=== PATIENT | male | born 1975 | race Asian ===

== ENCOUNTER 2018-08-10 15:04 | Inpatient (IN) | payer OTHER ==
[~2018-08-10] VITALS: Ht 175.3 cm; Wt 89.9 kg
--- NOTE | 2018-08-10 15:35 | NUR ---
PT C/O DARK STOOLS AFTER USING MOTRIN WITH HX OF THE SAME WHEN USING MOTRIN. PT HAS HX OF ULCER AND HAS BEEN TAKING PRILOSEC. DR. BECERRA AT BEDSIDE.
--- NOTE | 2018-08-10 15:46 | NUR ---
PT TO RESTROOM FOR STOOL SPECIMEN.
[2018-08-10 16:07] LABS: MEAN CORPUSCULAR HEMOGLOBIN 21.4 pg (27.5-34.5); MEAN CORPUSCULAR HGB CONC 31.8 g/dL (33.2-36.2); MEAN CORPUSCULAR VOLUME 67.3 fL (81-97); MEAN PLATELET VOLUME 9.6 fL (7.4-10.4); PLATELET COUNT 360 x10^3/uL (130-400); RED BLOOD COUNT 6.08 x10^6/uL (4.38-5.82); RED CELL DISTRIBUTION WIDTH 15.1 % (9.4-14.8)
[2018-08-10 16:13] LABS: INTERNATIONAL NORMALIZED RATIO 1.03 (0.93-1.1); PROTHROMBIN TIME 10.9 Seconds (9.6-11.5)
[2018-08-10 16:16] LABS: ALBUMIN 3.9 g/dL (3.4-5.0); ANION GAP 9 mmol/L (5-15); CALCIUM 9.3 mg/dL (8.5-10.1); CHLORIDE 99 mmol/L (98-107)
[2018-08-10 16:21] LABS: ALANINE AMINOTRANSFERASE 88 U/L (12-78); ALKALINE PHOSPHATASE 90 U/L (45-117); BILIRUBIN,TOTAL 0.7 mg/dL (0.2-1.0); CREATININE 2.19 mg/dL (0.7-1.3); TOTAL PROTEIN 8.2 g/dL (6.4-8.2)
[2018-08-10] MEDS ORDERED: PANTOPRAZOLE 40 MG IV IVPush ONE (16:30)
[2018-08-10 16:33] LABS: MD YES
[2018-08-10 16:38] LABS: BAND#(MANUAL) 0.18 x10^3/uL; BANDS%(MANUAL) 1 % (0-7); BASOS#(MANUAL) 0.18 x10^3/uL (0-0.1); BASOS% (MANUAL) 1 % (0-1); EOS#(MANUAL) 0.36 x10^3/uL (0.0-0.4); EOS% (MANUAL) 2 % (1-7); LYMPH#(MANUAL) 3.46 x10^3/uL (1-3.4); LYMPHS% (MANUAL) 19 % (22-44); MONOS#(MANUAL) 1.82 x10^3/uL (0.3-2.7); MONOS% (MANUAL) 10 % (2-9); SEG#(MANUAL) 12.19 x10^3/uL (1.8-6.8); SEGS% (MANUAL) 67 % (42-75)
[2018-08-10 16:40] LABS: MICROCYTOSIS 2+
[2018-08-10 16:41] LABS: <PLATELET ESTIMATE> ADEQUATE; <PLT MORPHOLOGY> NORMAL PLT MORPH; HYPOCHROMIA 1+
[2018-08-10] MEDS ORDERED: PANTOPRAZOLE 40 MG IV ONE (17:01)
[2018-08-10] MEDS ORDERED: ONDANSETRON 2MG/ML, 2ML ONE (17:20)
[2018-08-10] MEDS ORDERED: MORPHINE SULFATE 4 MG/ML, 1ML ONE (17:21)
[2018-08-10] MEDS ORDERED: METRONIDAZOLE PMX 500MG/100ML 100 ML ONE (17:21)
[2018-08-10] MEDS ORDERED: PLEASE ENTER ALLERGIES MC SCH (17:30)
[2018-08-10] MEDS ORDERED: SODIUM CHLORIDE 0.9% 1,000ML IVBOLUS ONE (17:30)
[2018-08-10] MEDS ORDERED: ONDANSETRON 2MG/ML, 2ML IVPush ONE (17:30)
[2018-08-10] MEDS ORDERED: METRONIDAZOLE PMX 500MG/100ML 100 ML IV ONE (17:30)
[2018-08-10] MEDS ORDERED: MORPHINE SULFATE 4 MG/ML, 1ML IVPush PRN (17:30)
--- NOTE | 2018-08-10 18:00 | NUR ---
PAIN 2/10 AFTER MORPHINE AND TOLERABLE PER PT. PT TO BE ADMITTED. WAITING FOR ADMIT ORDERS.
--- NOTE | 2018-08-10 19:24 | NUR ---
HOSPITALIST AT BEDSIDE FOR ADMIT. VSS.
[2018-08-10] MEDS ORDERED: DAYQUIL PO (19:57)
[2018-08-10] MEDS ORDERED: OMEP20TA62 PO (19:57)
[2018-08-10] MEDS ORDERED: LACT1CAP35 PO (19:57)
[2018-08-10] MEDS ORDERED: LOSARTAN PO (19:57)
[2018-08-10] MEDS ORDERED: UNKN CHOLESTEROL MED PO (19:57)
[2018-08-10 20:18] VITALS: BP 137/82
[2018-08-10] MEDS: SODIUM CHLORIDE 0.9% 1,000 ML IV SCH (22:04)
[2018-08-10] MEDS: CLARITHROMYCIN 500 MG TABLET PO SCH (22:23)
[2018-08-10] MEDS: LIDODERM 5% PATCH TD PRN ×2 (22:41→22:47)
[2018-08-10] MEDS: METRONIDAZOLE PMX 500MG/100ML 100 ML IV SCH (23:53)
[2018-08-11 01:11] VITALS: BP 109/59
[2018-08-11 05:29] LABS: ANION GAP 7 mmol/L (5-15); CALCIUM 8.1 mg/dL (8.5-10.1); CHLORIDE 104 mmol/L (98-107)
[2018-08-11] MEDS: SODIUM CHLORIDE 0.9% 1,000 ML IV SCH ×3 (05:35→23:48)
[2018-08-11] MEDS: METRONIDAZOLE PMX 500MG/100ML 100 ML IV SCH ×4 (05:35→23:48)
[2018-08-11 05:36] LABS: MEAN CORPUSCULAR HEMOGLOBIN 21.3 pg (27.5-34.5); MEAN CORPUSCULAR HGB CONC 31.5 g/dL (33.2-36.2); MEAN CORPUSCULAR VOLUME 67.4 fL (81-97); MEAN PLATELET VOLUME 9.1 fL (7.4-10.4); PLATELET COUNT 276 x10^3/uL (130-400); RED BLOOD COUNT 4.74 x10^6/uL (4.38-5.82); RED CELL DISTRIBUTION WIDTH 14.9 % (9.4-14.8)
[2018-08-11 06:10] LABS: BASOPHILS # (AUTO) 0.05 x10^3/uL (0-0.1); BASOPHILS % (AUTO) 0 % (0-1); EOSINOPHILS # (AUTO) 0.13 x10^3/uL (0-0.4); EOSINOPHILS % (AUTO) 1 % (1-7); LYMPHOCYTES # (AUTO) 2.42 x10^3/uL (1-3.4); LYMPHOCYTES % (AUTO) 19 % (22-44); MD SCAN; MONOCYTES # (AUTO) 1.56 x10^3/uL (0.2-0.8); MONOCYTES % (AUTO) 12 % (2-9); NEUTROPHILS # (AUTO) 8.46 x10^3/uL (1.8-6.8); NEUTROPHILS % (AUTO) 67 % (42-75)
[2018-08-11 07:37] VITALS: BP 104/55
[2018-08-11] MEDS ORDERED: GADOBUTROL 10 MMOL/10 ML VIAL ONE (08:24)
[2018-08-11] MEDS ORDERED: FENTANYL PF 100 MCG/2ML ONE ×2 (08:40)
[2018-08-11] MEDS ORDERED: MIDAZOLAM 1 MG/ML, 5ML ONE (08:41)
[2018-08-11] MEDS: LACTOBACILLUS CHEW TABLET PO SCH (10:28)
[2018-08-11] MEDS: PANTOPRAZOLE 40 MG IV IVPush SCH ×2 (10:28→21:38)
[2018-08-11] MEDS: CLARITHROMYCIN 500 MG TABLET PO SCH ×2 (10:28→21:37)
[2018-08-11 13:00] VITALS: BP 131/77
[2018-08-11 19:13] VITALS: BP 140/81
[2018-08-11] MEDS: LIDODERM 5% PATCH TD PRN (21:48)
[2018-08-11] MEDS: ONDANSETRON 2MG/ML, 2ML IVPush PRN (22:48)
[2018-08-12] MEDS: TEMAZEPAM 15 MG CAPSULE PO PRN ×2 (00:12→22:29)
[2018-08-12 01:34] VITALS: BP 123/76
[2018-08-12 05:33] LABS: MEAN CORPUSCULAR HEMOGLOBIN 22.1 pg (27.5-34.5); MEAN CORPUSCULAR HGB CONC 32.1 g/dL (33.2-36.2); MEAN CORPUSCULAR VOLUME 68.8 fL (81-97); MEAN PLATELET VOLUME 8.9 fL (7.4-10.4); PLATELET COUNT 310 x10^3/uL (130-400); RED BLOOD COUNT 4.37 x10^6/uL (4.38-5.82); RED CELL DISTRIBUTION WIDTH 15.2 % (9.4-14.8)
[2018-08-12] MEDS: METRONIDAZOLE PMX 500MG/100ML 100 ML IV SCH ×4 (05:41→23:04)
[2018-08-12] MEDS: SODIUM CHLORIDE 0.9% 1,000 ML IV SCH ×3 (05:41→23:02)
[2018-08-12 05:45] LABS: CHLORIDE 107 mmol/L (98-107)
[2018-08-12 05:51] LABS: ALANINE AMINOTRANSFERASE 55 U/L (12-78); ALBUMIN 2.9 g/dL (3.4-5.0); ALKALINE PHOSPHATASE 64 U/L (45-117); ANION GAP 7 mmol/L (5-15); BILIRUBIN,TOTAL 0.4 mg/dL (0.2-1.0); CALCIUM 8.2 mg/dL (8.5-10.1); CREATININE 1.55 mg/dL (0.7-1.3)
[2018-08-12 06:35] LABS: MD YES
[2018-08-12 06:36] LABS: BAND#(MANUAL) 0.32 x10^3/uL; BANDS%(MANUAL) 3 % (0-7); BASOS#(MANUAL) 0.11 x10^3/uL (0-0.1); BASOS% (MANUAL) 1 % (0-1); LYMPH#(MANUAL) 2.81 x10^3/uL (1-3.4); LYMPHS% (MANUAL) 26 % (22-44); MONOS#(MANUAL) 0.97 x10^3/uL (0.3-2.7); MONOS% (MANUAL) 9 % (2-9); SEG#(MANUAL) 6.59 x10^3/uL (1.8-6.8); SEGS% (MANUAL) 61 % (42-75)
[2018-08-12 06:37] VITALS: BP 135/78
[2018-08-12 06:37] LABS: <PLATELET ESTIMATE> ADEQUATE; <PLT MORPHOLOGY> NORMAL PLT MORPH
[2018-08-12 06:38] LABS: HYPOCHROMIA 1+; MICROCYTOSIS 2+
[2018-08-12] MEDS ORDERED: LIDOCAINE-MPF 1%, 5ML ONE ×2 (09:41→10:30)
[2018-08-12] MEDS ORDERED: MIDAZOLAM 1 MG/ML, 5ML ONE (09:53)
[2018-08-12] MEDS ORDERED: FENTANYL PF 100 MCG/2ML ONE (09:53)
[2018-08-12] MEDS ORDERED: FLUMAZENIL 0.1 MG/1 ML, 5ML ONE (09:53)
[2018-08-12] MEDS ORDERED: NALOXONE 1 MG/ML, 2ML ONE (09:54)
[2018-08-12] MEDS: CLARITHROMYCIN 500 MG TABLET PO SCH ×2 (11:36→20:50)
[2018-08-12] MEDS: PANTOPRAZOLE 40 MG IV IVPush SCH ×2 (11:36→20:50)
[2018-08-12] MEDS: LACTOBACILLUS CHEW TABLET PO SCH (11:36)
[2018-08-12 12:29] VITALS: BP 154/96
[2018-08-12] MEDS: PIPERACILLIN/TAZO/PMX 3.375GM 50 ML IV SCH ×2 (15:21→20:50)
[2018-08-12] MEDS: ONDANSETRON 2MG/ML, 2ML IVPush PRN ×2 (15:24→23:08)
[2018-08-12] MEDS: morphine SULFATE 10 MG/ML, 1ML IVPush PRN ×4 (18:25→23:02)
[2018-08-12 19:22] VITALS: BP 151/91
[2018-08-12] MEDS: LIDODERM 5% PATCH TD PRN (20:51)
[2018-08-13] MEDS: morphine SULFATE 10 MG/ML, 1ML IVPush PRN ×3 (02:23→08:32)
[2018-08-13] MEDS: PIPERACILLIN/TAZO/PMX 3.375GM 50 ML IV SCH ×4 (02:23→20:29)
[2018-08-13 02:26] VITALS: BP 138/85
[2018-08-13] MEDS: METRONIDAZOLE PMX 500MG/100ML 100 ML IV SCH ×4 (05:23→23:16)
[2018-08-13] MEDS: SODIUM CHLORIDE 0.9% 1,000 ML IV SCH ×3 (05:24→22:20)
[2018-08-13 06:04] LABS: CHLORIDE 105 mmol/L (98-107)
[2018-08-13 06:18] LABS: ALANINE AMINOTRANSFERASE 53 U/L (12-78); ALBUMIN 2.7 g/dL (3.4-5.0); ALKALINE PHOSPHATASE 69 U/L (45-117); ANION GAP 7 mmol/L (5-15); BILIRUBIN,TOTAL 0.6 mg/dL (0.2-1.0); CALCIUM 8.4 mg/dL (8.5-10.1); CREATININE 1.61 mg/dL (0.7-1.3); TOTAL PROTEIN 5.9 g/dL (6.4-8.2)
[2018-08-13 06:40] LABS: HCT (SEDRATE) 29.2 % (39.2-51.8); MEAN CORPUSCULAR HEMOGLOBIN 21.8 pg (27.5-34.5); MEAN CORPUSCULAR HGB CONC 31.9 g/dL (33.2-36.2); MEAN CORPUSCULAR VOLUME 68.4 fL (81-97); MEAN PLATELET VOLUME 8.9 fL (7.4-10.4); PLATELET COUNT 316 x10^3/uL (130-400); RED BLOOD COUNT 4.27 x10^6/uL (4.38-5.82); RED CELL DISTRIBUTION WIDTH 14.9 % (9.4-14.8)
[2018-08-13 07:01] VITALS: BP 160/91
[2018-08-13 07:02] LABS: MD YES
[2018-08-13 07:03] LABS: ANISOCYTOSIS 2+; BAND#(MANUAL) 0.54 x10^3/uL; BANDS%(MANUAL) 4 % (0-7); BASOS#(MANUAL) 0.14 x10^3/uL (0-0.1); BASOS% (MANUAL) 1 % (0-1); LYMPH#(MANUAL) 2.72 x10^3/uL (1-3.4); LYMPHS% (MANUAL) 20 % (22-44); MONOS#(MANUAL) 0.95 x10^3/uL (0.3-2.7); MONOS% (MANUAL) 7 % (2-9); SEG#(MANUAL) 9.25 x10^3/uL (1.8-6.8); SEGS% (MANUAL) 68 % (42-75)
[2018-08-13 07:04] LABS: <PLATELET ESTIMATE> ADEQUATE; <PLT MORPHOLOGY> NORMAL PLT MORPH; HYPOCHROMIA 1+; OVALOCYTES 1+
[2018-08-13] MEDS: PANTOPRAZOLE 40 MG IV IVPush SCH ×2 (08:32→20:31)
[2018-08-13] MEDS: CLARITHROMYCIN 500 MG TABLET PO SCH ×2 (08:32→20:30)
[2018-08-13] MEDS: LACTOBACILLUS CHEW TABLET PO SCH (08:33)
[2018-08-13] MEDS: ONDANSETRON 2MG/ML, 2ML IVPush PRN ×3 (09:05→23:19)
[2018-08-13] MEDS ORDERED: LIDOCAINE-MPF 1%, 5ML ONE (11:02)
[2018-08-13 12:40] VITALS: BP 166/98
[2018-08-13 15:32] VITALS: BP 151/86
[2018-08-13 19:58] VITALS: BP 152/81
[2018-08-13] MEDS: TEMAZEPAM 15 MG CAPSULE PO PRN (22:43)
[2018-08-14 02:04] VITALS: BP 138/85
[2018-08-14] MEDS: PIPERACILLIN/TAZO/PMX 3.375GM 50 ML IV SCH ×4 (02:24→21:14)
[2018-08-14] MEDS: SODIUM CHLORIDE 0.9% 1,000 ML IV SCH ×4 (05:00→23:00)
[2018-08-14] MEDS: METRONIDAZOLE PMX 500MG/100ML 100 ML IV SCH ×4 (05:50→23:19)
[2018-08-14 06:16] LABS: BASOPHILS # (AUTO) 0.05 x10^3/uL (0-0.1); BASOPHILS % (AUTO) 0 % (0-1); EOSINOPHILS # (AUTO) 0.11 x10^3/uL (0-0.4); EOSINOPHILS % (AUTO) 1 % (1-7); LYMPHOCYTES % (AUTO) 18 % (22-44); MD NO; MEAN CORPUSCULAR HEMOGLOBIN 22.4 pg (27.5-34.5); MEAN CORPUSCULAR HGB CONC 32.9 g/dL (33.2-36.2); MEAN PLATELET VOLUME 8.6 fL (7.4-10.4); MONOCYTES # (AUTO) 1.36 x10^3/uL (0.2-0.8); MONOCYTES % (AUTO) 11 % (2-9); NEUTROPHILS # (AUTO) 8.64 x10^3/uL (1.8-6.8); NEUTROPHILS % (AUTO) 70 % (42-75); PLATELET COUNT 333 x10^3/uL (130-400); RED BLOOD COUNT 4.04 x10^6/uL (4.38-5.82); RED CELL DISTRIBUTION WIDTH 14.9 % (9.4-14.8)
[2018-08-14 06:30] LABS: ANION GAP 4 mmol/L (5-15); CALCIUM 7.9 mg/dL (8.5-10.1); CHLORIDE 108 mmol/L (98-107)
[2018-08-14 06:31] LABS: CREATININE 1.37 mg/dL (0.7-1.3)
[2018-08-14 06:51] VITALS: BP 137/74
[2018-08-14] MEDS: PANTOPRAZOLE 40 MG IV IVPush SCH ×2 (08:04→21:14)
[2018-08-14] MEDS: LACTOBACILLUS CHEW TABLET PO SCH (09:24)
[2018-08-14] MEDS: CLARITHROMYCIN 500 MG TABLET PO SCH ×2 (09:24→21:14)
[2018-08-14 13:34] VITALS: BP 148/88
[2018-08-14 20:06] VITALS: BP 136/94
[2018-08-14] MEDS: TEMAZEPAM 15 MG CAPSULE PO PRN (21:14)
[2018-08-15 02:00] VITALS: BP 150/92
[2018-08-15] MEDS: PIPERACILLIN/TAZO/PMX 3.375GM 50 ML IV SCH ×2 (02:10→08:21)
[2018-08-15] MEDS: SODIUM CHLORIDE 0.9% 1,000 ML IV SCH ×2 (02:15→11:43)
[2018-08-15 05:21] LABS: BASOPHILS # (AUTO) 0.02 x10^3/uL (0-0.1); BASOPHILS % (AUTO) 0 % (0-1); EOSINOPHILS % (AUTO) 2 % (1-7); LYMPHOCYTES % (AUTO) 19 % (22-44); MD NO; MEAN CORPUSCULAR HEMOGLOBIN 21.6 pg (27.5-34.5); MEAN CORPUSCULAR HGB CONC 31.2 g/dL (33.2-36.2); MEAN CORPUSCULAR VOLUME 69.2 fL (81-97); MEAN PLATELET VOLUME 8.4 fL (7.4-10.4); MONOCYTES # (AUTO) 1.16 x10^3/uL (0.2-0.8); MONOCYTES % (AUTO) 10 % (2-9); NEUTROPHILS # (AUTO) 8.43 x10^3/uL (1.8-6.8); NEUTROPHILS % (AUTO) 69 % (42-75); PLATELET COUNT 389 x10^3/uL (130-400); RED BLOOD COUNT 4.21 x10^6/uL (4.38-5.82); RED CELL DISTRIBUTION WIDTH 14.9 % (9.4-14.8)
[2018-08-15 05:22] LABS: ANION GAP 6 mmol/L (5-15); CALCIUM 8.2 mg/dL (8.5-10.1); CHLORIDE 106 mmol/L (98-107); CREATININE 1.42 mg/dL (0.7-1.3)
[2018-08-15] MEDS: METRONIDAZOLE PMX 500MG/100ML 100 ML IV SCH (05:35)
[2018-08-15 07:21] VITALS: BP 149/93
[2018-08-15] MEDS: LACTOBACILLUS CHEW TABLET PO SCH (08:21)
[2018-08-15] MEDS: CLARITHROMYCIN 500 MG TABLET PO SCH ×2 (08:21→20:24)
[2018-08-15] MEDS: PANTOPRAZOLE 40 MG IV IVPush SCH ×2 (08:21→20:24)
[2018-08-15] MEDS: CEFTRIAXONE PMX 2GM/50ML 50 ML IV SCH (14:05)
[2018-08-15] MEDS: metroNIDAZOLE 500 MG TABLET PO SCH ×2 (14:09→20:24)
[2018-08-15 14:51] VITALS: BP 174/91
[2018-08-15] MEDS ORDERED: hydrALAzine 20 MG/ML, 1ML IV PRN (17:30)
[2018-08-15 19:12] VITALS: BP 162/95
[2018-08-15] MEDS: LIDODERM 5% PATCH TD PRN (20:25)
[2018-08-15] MEDS: TEMAZEPAM 15 MG CAPSULE PO PRN (20:29)
[2018-08-15] MEDS: ONDANSETRON 2MG/ML, 2ML IVPush PRN (20:29)
[2018-08-16 01:10] VITALS: BP 132/76
[2018-08-16] MEDS: metroNIDAZOLE 500 MG TABLET PO SCH ×3 (05:14→20:38)
[2018-08-16 05:46] LABS: BASOPHILS # (AUTO) 0.08 x10^3/uL (0-0.1); BASOPHILS % (AUTO) 1 % (0-1); EOSINOPHILS # (AUTO) 0.19 x10^3/uL (0-0.4); EOSINOPHILS % (AUTO) 2 % (1-7); LYMPHOCYTES # (AUTO) 2.08 x10^3/uL (1-3.4); LYMPHOCYTES % (AUTO) 18 % (22-44); MD NO; MEAN CORPUSCULAR HEMOGLOBIN 22.2 pg (27.5-34.5); MEAN CORPUSCULAR HGB CONC 32.5 g/dL (33.2-36.2); MEAN CORPUSCULAR VOLUME 68.2 fL (81-97); MEAN PLATELET VOLUME 8.5 fL (7.4-10.4); MONOCYTES # (AUTO) 1.19 x10^3/uL (0.2-0.8); MONOCYTES % (AUTO) 10 % (2-9); NEUTROPHILS # (AUTO) 7.98 x10^3/uL (1.8-6.8); NEUTROPHILS % (AUTO) 69 % (42-75); PLATELET COUNT 451 x10^3/uL (130-400); RED BLOOD COUNT 4.48 x10^6/uL (4.38-5.82)
[2018-08-16 05:54] LABS: ALANINE AMINOTRANSFERASE 56 U/L (12-78); ALBUMIN 2.6 g/dL (3.4-5.0); ANION GAP 6 mmol/L (5-15); CALCIUM 8.5 mg/dL (8.5-10.1); CHLORIDE 104 mmol/L (98-107); CREATININE 1.21 mg/dL (0.7-1.3)
[2018-08-16 05:55] LABS: ALKALINE PHOSPHATASE 89 U/L (45-117); BILIRUBIN,TOTAL 0.5 mg/dL (0.2-1.0); TOTAL PROTEIN 6.7 g/dL (6.4-8.2)
[2018-08-16 07:38] VITALS: BP 157/88
[2018-08-16] MEDS: CLARITHROMYCIN 500 MG TABLET PO SCH ×2 (09:07→20:38)
[2018-08-16] MEDS: PANTOPRAZOLE 40 MG IV IVPush SCH ×2 (09:07→20:38)
[2018-08-16] MEDS: LACTOBACILLUS CHEW TABLET PO SCH (09:07)
[2018-08-16] MEDS: CEFTRIAXONE PMX 2GM/50ML 50 ML IV SCH (14:15)
[2018-08-16 16:58] VITALS: BP 152/89
[2018-08-16 18:59] VITALS: BP 151/99
[2018-08-16] MEDS: LIDODERM 5% PATCH TD PRN (20:39)
[2018-08-16] MEDS: TEMAZEPAM 15 MG CAPSULE PO PRN (22:10)
[2018-08-17] MEDS: metroNIDAZOLE 500 MG TABLET PO SCH ×2 (05:22→13:48)
[2018-08-17 09:25] VITALS: BP 167/105
[2018-08-17] MEDS: LACTOBACILLUS CHEW TABLET PO SCH (09:36)
[2018-08-17] MEDS: PANTOPRAZOLE 40 MG IV IVPush SCH (09:37)
[2018-08-17] MEDS: CLARITHROMYCIN 500 MG TABLET PO SCH (09:37)
[2018-08-17] MEDS ORDERED: CLAR500T PO (13:15)
[2018-08-17] MEDS ORDERED: METR500T PO (13:15)
[2018-08-17] MEDS ORDERED: PANT40TA3 PO (13:15)
[2018-08-17] MEDS ORDERED: TRAM50TA2 PO (13:15)
[2018-08-17] MEDS ORDERED: HYDR-3343 PO (13:15)
[2018-08-17] MEDS: CEFTRIAXONE PMX 2GM/50ML 50 ML IV SCH (13:48)
== END 2018-08-17 16:38 | disposition home or self-care (01) | DRG 871 ==
LOC: ED 17:53 → EDIP 19:07 → 4NOR 20:10 → DCLOUNGE 08-17 16:25
PROVIDERS: ADMIT Hospitalist; ATTEND Internal Medicine
PROC: 0DB68ZX Excision of Stomach, Via Natural or Artificial Opening Endoscopic, Diagnostic (ICD-10-PCS; 2018-08-11)
PROC: 0F913ZZ Drainage of Right Lobe Liver, Percutaneous Approach (ICD-10-PCS; 2018-08-12)
PROC: 02HV33Z Insertion of Infusion Device into Superior Vena Cava, Percutaneous Approach (ICD-10-PCS; principal; 2018-08-13)
PROC: B5181ZA Fluoroscopy of Superior Vena Cava using Low Osmolar Contrast, Guidance (ICD-10-PCS; 2018-08-13)
PROC: B548ZZA Ultrasonography of Superior Vena Cava, Guidance (ICD-10-PCS; 2018-08-13)
DX: A41.59 Other Gram-negative sepsis (principal); N17.0 Acute kidney failure with tubular necrosis; K75.0 Abscess of liver; K25.4 Chronic or unspecified gastric ulcer with hemorrhage; K26.4 Chronic or unspecified duodenal ulcer with hemorrhage; K29.71 Gastritis, unspecified, with bleeding; Z82.49 Family history of ischemic heart disease and other diseases of the circulatory system; E78.5 Hyperlipidemia, unspecified; D64.9 Anemia, unspecified; I11.9 Hypertensive heart disease without heart failure; B96.81 Helicobacter pylori [H. pylori] as the cause of diseases classified elsewhere; Z79.899 Other long term (current) drug therapy; Z79.1 Long term (current) use of non-steroidal anti-inflammatories (NSAID); Z79.2 Long term (current) use of antibiotics
CPT/HCPCS: 36415; 36569; 36573; 49405; 71045; 74176; 74181; 74183; 75989; 76937; 77001; 80048; 80053; 82105; 83605; 83735; 84100; 84145; 85025; 85610; 85651; 85730; 86140; 86677; 87040; 87070; 87075; 87077; 87102; 87186; 87205; 88305; 96361; 96365; 96375; 99156; 99157; A9585; G0378; J0696; J2250; J2405; J2543; J3010; C1729; C1751; C1769; C9113; J2270; J2310; J7030

== ENCOUNTER → 2018-09-27 | Outpatient (CLI) | payer OTHER ==
[~2018-09-27] MED LIST: CLAR500T PO; DAYQUIL PO; HYDR-3343 PO; LACT1CAP35 PO; LOSARTAN PO; METR500T PO; OMEP20TA62 PO; OMNIPAQUE 350 MG/ML, 100ML BOTTLE ONE; PANT40TA3 PO; TRAM50TA2 PO; UNKN CHOLESTEROL MED PO
== END | disposition home or self-care (01) ==
LOC: CFH 10:06
PROVIDERS: ATTEND Internal Medicine Infectious Disease
DX: K76.0 Fatty (change of) liver, not elsewhere classified (principal); K75.0 Abscess of liver
CPT/HCPCS: 74160; Q9967

== ENCOUNTER → 2019-01-29 | Outpatient (CLI) | payer OTHER ==
[~2019-01-29] MED LIST changes: +CLAR-36 PO; -CLAR500T PO; -OMNIPAQUE 350 MG/ML, 100ML BOTTLE ONE
[2019-01-29 11:35] LABS: ALANINE AMINOTRANSFERASE 40 U/L (12-78); ALBUMIN 4.1 g/dL (3.4-5.0); ANION GAP 7 mmol/L (5-15); CALCIUM 9.2 mg/dL (8.5-10.1); CHLORIDE 108 mmol/L (98-107); CREATININE 1.39 mg/dL (0.7-1.3)
[2019-01-29 11:45] LABS: ALKALINE PHOSPHATASE 65 U/L (45-117); BILIRUBIN,TOTAL 0.5 mg/dL (0.2-1.0); CHOL/HDL RATIO 4.8; CHOLESTEROL, TOTAL 218 mg/dL (140-239); HDL CHOL % 21 % (26-37); HDL CHOLESTEROL (DIRECT) 45 mg/dL (40-60); LDL CHOLESTEROL,CALCULATED 147 mg/dL (54-169); LDL/HDL RATIO 3.3 (0.5-3.0); THYROID STIMULATING HORMONE 0.713 mIU/L (0.358-3.740); TOTAL PROTEIN 7.8 g/dL (6.4-8.2); TRIGLYCERIDES 132 mg/dL (50-200); VLDL CHOLESTEROL 26 mg/dL (0-25)
[2019-01-29 11:49] LABS: BASOPHILS # (AUTO) 0.05 x10^3/uL (0-0.1); BASOPHILS % (AUTO) 1 % (0-1); EOSINOPHILS # (AUTO) 0.14 x10^3/uL (0-0.4); EOSINOPHILS % (AUTO) 2 % (1-7); LYMPHOCYTES # (AUTO) 1.96 x10^3/uL (1-3.4); LYMPHOCYTES % (AUTO) 30 % (22-44); MD NO; MEAN CORPUSCULAR HEMOGLOBIN 21.2 pg (27.5-34.5); MEAN CORPUSCULAR HGB CONC 31.5 g/dL (33.2-36.2); MEAN CORPUSCULAR VOLUME 67.4 fL (81-97); MEAN PLATELET VOLUME 9.1 fL (7.4-10.4); MONOCYTES % (AUTO) 8 % (2-9); NEUTROPHILS # (AUTO) 3.81 x10^3/uL (1.8-6.8); NEUTROPHILS % (AUTO) 59 % (42-75); PLATELET COUNT 176 x10^3/uL (130-400); RED BLOOD COUNT 6.46 x10^6/uL (4.38-5.82); RED CELL DISTRIBUTION WIDTH 15.7 % (9.4-14.8)
== END | disposition home or self-care (01) ==
LOC: LAB 11:14
PROVIDERS: ATTEND Family Medicine
DX: I10 Essential (primary) hypertension (principal); E78.2 Mixed hyperlipidemia; N17.0 Acute kidney failure with tubular necrosis
CPT/HCPCS: 36415; 80053; 80061; 84443; 85025

== ENCOUNTER → 2019-08-23 | Outpatient (CLI) | payer OTHER ==
[2019-08-23 07:48] LABS: BASOPHILS # (AUTO) 0.03 x10^3/uL (0-0.1); BASOPHILS % (AUTO) 1 % (0-1); EOSINOPHILS # (AUTO) 0.17 x10^3/uL (0-0.4); EOSINOPHILS % (AUTO) 3 % (1-7); LYMPHOCYTES # (AUTO) 2.39 x10^3/uL (1-3.4); LYMPHOCYTES % (AUTO) 35 % (22-44); MD NO; MEAN CORPUSCULAR HEMOGLOBIN 21.8 pg (27.5-34.5); MEAN CORPUSCULAR HGB CONC 31.2 g/dL (33.2-36.2); MEAN CORPUSCULAR VOLUME 69.7 fL (81-97); MEAN PLATELET VOLUME 9.6 fL (7.4-10.4); MONOCYTES # (AUTO) 0.63 x10^3/uL (0.2-0.8); MONOCYTES % (AUTO) 9 % (2-9); NEUTROPHILS # (AUTO) 3.71 x10^3/uL (1.8-6.8); NEUTROPHILS % (AUTO) 54 % (42-75); PLATELET COUNT 222 x10^3/uL (130-400); RED BLOOD COUNT 6.76 x10^6/uL (4.38-5.82); RED CELL DISTRIBUTION WIDTH 15.2 % (9.4-14.8)
[2019-08-23 07:50] LABS: ALBUMIN 4.1 g/dL (3.4-5.0); ANION GAP 5 mmol/L (5-15); CALCIUM 9.6 mg/dL (8.5-10.1); CHLORIDE 106 mmol/L (98-107); CHOLESTEROL, TOTAL 255 mg/dL (140-239)
[2019-08-23 08:16] LABS: % IRON SATURATION 34 % (20-55); ALANINE AMINOTRANSFERASE 42 U/L (12-78); ALKALINE PHOSPHATASE 53 U/L (45-117); BILIRUBIN,TOTAL 0.7 mg/dL (0.2-1.0); CHOL/HDL RATIO 5.9; CREATININE 1.46 mg/dL (0.7-1.3); FOLATE LEVEL 19.5 ng/mL (3.1-17.5); FREE T4 (FREE THYROXINE) 1.44 ng/dL (0.76-1.46); HDL CHOL % 17 % (26-37); HDL CHOLESTEROL (DIRECT) 43 mg/dL (40-60); IRON LEVEL 107 mcg/dL (65-175); LDL CHOLESTEROL,CALCULATED 188 mg/dL (54-169); LDL/HDL RATIO 4.4 (0.5-3.0); TOTAL IRON BINDING CAPACITY 316 mcg/dL (250-450); TOTAL PROTEIN 7.7 g/dL (6.4-8.2); TRIGLYCERIDES 120 mg/dL (50-200); VLDL CHOLESTEROL 24 mg/dL (0-25)
== END | disposition home or self-care (01) ==
LOC: LAB 07:19
PROVIDERS: ATTEND Nurse Practitioner Family
DX: E78.2 Mixed hyperlipidemia (principal); I10 Essential (primary) hypertension; R53.82 Chronic fatigue, unspecified; R79.9 Abnormal finding of blood chemistry, unspecified
CPT/HCPCS: 36415; 80053; 80061; 82306; 82607; 82746; 83540; 83550; 84439; 84443; 85025

== ENCOUNTER 2019-09-25 15:45 | Outpatient (CLI) | payer OTHER ==
[~2019-09-25 15:45] MED LIST changes: +CLAR-14 PO; -CLAR-36 PO
== END 2019-09-25 23:59 | disposition home or self-care (01) ==
LOC: RAD 15:45
PROVIDERS: ATTEND Nurse Practitioner Family
DX: Z02.9 Encounter for administrative examinations, unspecified (principal)

== ENCOUNTER → 2019-09-26 | Outpatient (CLI) | payer OTHER | END | disposition home or self-care (01) | LOC: RAD 15:27 | PROVIDERS: ATTEND Nurse Practitioner Family | DX: M25.562 Pain in left knee (principal) ==

== ENCOUNTER 2020-03-19 17:53 | Outpatient (CLI) | payer OTHER | END 2020-03-19 23:59 | disposition home or self-care (01) | LOC: LAB 17:53 | PROVIDERS: ATTEND Family Medicine | DX: Z02.9 Encounter for administrative examinations, unspecified (principal) ==

== ENCOUNTER 2020-03-20 07:14 | Outpatient (CLI) | payer OTHER ==
[2020-03-20 07:34] LABS: BASOPHILS # (AUTO) 0.03 x10^3/uL (0-0.1); BASOPHILS % (AUTO) 1 % (0-1); EOSINOPHILS # (AUTO) 0.15 x10^3/uL (0-0.4); EOSINOPHILS % (AUTO) 2 % (1-7); LYMPHOCYTES # (AUTO) 2.21 x10^3/uL (1-3.4); LYMPHOCYTES % (AUTO) 33 % (22-44); MD NO; MEAN CORPUSCULAR HEMOGLOBIN 21.5 pg (27.5-34.5); MEAN CORPUSCULAR HGB CONC 30.9 g/dL (33.2-36.2); MEAN CORPUSCULAR VOLUME 69.6 fL (81-97); MEAN PLATELET VOLUME 9.1 fL (7.4-10.4); MONOCYTES # (AUTO) 0.57 x10^3/uL (0.2-0.8); MONOCYTES % (AUTO) 9 % (2-9); NEUTROPHILS # (AUTO) 3.81 x10^3/uL (1.8-6.8); NEUTROPHILS % (AUTO) 56 % (42-75); PLATELET COUNT 159 x10^3/uL (130-400); RED BLOOD COUNT 6.86 x10^6/uL (4.38-5.82); RED CELL DISTRIBUTION WIDTH 14.6 % (9.4-14.8)
[2020-03-20 07:42] LABS: ALANINE AMINOTRANSFERASE 60 U/L (12-78); ALBUMIN 4.2 g/dL (3.4-5.0); ANION GAP 10 mmol/L (5-15); CALCIUM 9.5 mg/dL (8.5-10.1); CHLORIDE 105 mmol/L (98-107); CHOLESTEROL, TOTAL 177 mg/dL (140-239); CREATININE 1.48 mg/dL (0.7-1.3); TRIGLYCERIDES 103 mg/dL (50-200); VLDL CHOLESTEROL 21 mg/dL (0-25)
[2020-03-20 07:52] LABS: ALKALINE PHOSPHATASE 73 U/L (45-117); CHOL/HDL RATIO 3.8; HDL CHOL % 26 % (26-37); HDL CHOLESTEROL (DIRECT) 46 mg/dL (40-60); LDL CHOLESTEROL,CALCULATED 110 mg/dL (54-169); LDL/HDL RATIO 2.4 (0.5-3.0)
== END 2020-03-20 23:59 | disposition home or self-care (01) ==
LOC: LAB 07:14
PROVIDERS: ATTEND Family Medicine
DX: Z00.01 Encounter for general adult medical examination with abnormal findings (principal); E78.2 Mixed hyperlipidemia; I10 Essential (primary) hypertension; E55.9 Vitamin D deficiency, unspecified; R73.03 Prediabetes
CPT/HCPCS: 36415; 80053; 80061; 82306; 83036; 84443; 85025

== ENCOUNTER → 2021-03-20 | Outpatient (CLI) | payer OTHER ==
[2021-03-20 14:09] LABS: BASOPHILS % (AUTO) 1 % (0-1); EOSINOPHILS % (AUTO) 1 % (1-7); LYMPHOCYTES % (AUTO) 28 % (22-44); MEAN CORPUSCULAR HEMOGLOBIN 21.8 pg (27.5-34.5); MEAN CORPUSCULAR HGB CONC 31.9 g/dL (33.2-36.2); MONOCYTES % (AUTO) 9 % (2-9); NEUTROPHILS % (AUTO) 61 % (42-75); PLATELET COUNT 189 x10^3/uL (130-400); RED BLOOD COUNT 6.29 x10^6/uL (4.38-5.82); RED CELL DISTRIBUTION WIDTH 14.8 % (9.4-14.8)
[2021-03-20 14:37] LABS: ALBUMIN 3.9 g/dL (3.4-5.0); ANION GAP 8 mmol/L (5-15); CALCIUM 9.7 mg/dL (8.5-10.1); CHLORIDE 105 mmol/L (98-107)
[2021-03-20 15:04] LABS: ALANINE AMINOTRANSFERASE 49 U/L (12-78); ALKALINE PHOSPHATASE 60 U/L (45-117); BILIRUBIN,TOTAL 0.6 mg/dL (0.2-1.0); CHOL/HDL RATIO 4.4; CHOLESTEROL, TOTAL 214 mg/dL (140-239); CREATININE 1.14 mg/dL (0.7-1.3); FOLATE LEVEL 16.5 ng/mL (3.1-17.5); HDL CHOL % 23 % (26-37); HDL CHOLESTEROL (DIRECT) 49 mg/dL (40-60); LDL CHOLESTEROL,CALCULATED 150 mg/dL (54-169); LDL/HDL RATIO 3.1 (0.5-3.0); TOTAL PROTEIN 7.4 g/dL (6.4-8.2); TRIGLYCERIDES 74 mg/dL (50-200); VLDL CHOLESTEROL 15 mg/dL (0-25)
== END | disposition home or self-care (01) ==
LOC: LAB 13:44
PROVIDERS: ATTEND Internal Medicine
DX: E55.9 Vitamin D deficiency, unspecified (principal); E78.2 Mixed hyperlipidemia; I10 Essential (primary) hypertension; N28.9 Disorder of kidney and ureter, unspecified; R25.2 Cramp and spasm; R53.83 Other fatigue; R73.03 Prediabetes
CPT/HCPCS: 36415; 80053; 80061; 82306; 82607; 82728; 82746; 83036; 84403; 84439; 84443; 85025